=== PATIENT | female | born 1950 | race American Indian/Alaskan Native ===

== ENCOUNTER 2016-05-26 08:57 | Outpatient (CLI) | payer BC ==
--- NOTE | 2016-05-26 10:11 | Mammography Report ---
LEFT DIGITAL DIAGNOSTIC MAMMOGRAM : 05/26/16 08:57:00 CLINICAL: Six month follow-up calcifications. COMPARISON:11/25/15 FINDINGS: ML and CC magnification views demonstrate a slight increased density of calcifications which are probably benign.No suspicious forms. No associated mass or architectural distortion. IMPRESSION: Probably benign calcifications. BI-RADS CATEGORY: 3 -- Probably Benign RECOMMENDATION: An additional six month followup with magnification views. ACR BI-RADS MAMMOGRAPHIC CODES: 0 = Needs additional imaging evaluation; 1 = Negative; 2 = Benign; 3 = Probably benign; 4 = Suspicious; 5 = Malignant; 6 = Known biopsy-proven malignancy COMMENT: 1. Dense breast tissue, i.e., adenosis, fibrocystic changes, etc., may obscure an underlying neoplasm. 2. Approximately 10% of cancers are not detected with mammography. 3. A negative mammography report should not delay biopsy if a clinically suspicious mass is present. COMMENT: Patient follow-up letters are generated by our [employer] application.
== END 2016-05-26 08:58 | disposition home or self-care (01) ==
LOC: SPVWC 08:57
PROVIDERS: ATTEND Internal Medicine
DX: R92.1 Mammographic calcification found on diagnostic imaging of breast (principal)
CPT/HCPCS: G0206-LT

== ENCOUNTER 2016-11-29 08:19 | Outpatient (CLI) | payer BC ==
--- NOTE | 2016-11-29 08:49 | Mammography Report ---
Left mammogram: AP and lateral magnification views compared to comparable exam in May 2016. There are 2 adjacent groupings of microcalcifications which remain unchanged with low suspicion for malignancy. Impression: Stable calcifications. Recommendation: Reevaluate calcifications in 6 months with her annual screening mammogram. BI-RADS CATEGORY: 3 = Probably benign ACR BI-RADS MAMMOGRAPHIC CODES: 0 = Needs additional imaging evaluation; 1 = Negative; 2 = Benign; 3 = Probably benign; 4 = Suspicious; 5 = Malignant; 6 = Known biopsy-proven malignancy COMMENT: 1. Dense breast tissue, i.e., adenosis, fibrocystic changes, etc., may obscure an underlying neoplasm. 2. Approximately 10% of cancers are not detected with mammography. 3. A negative mammography report should not delay biopsy if a clinically suspicious mass is present.
== END 2016-11-29 08:20 | disposition home or self-care (01) ==
LOC: SPVWC 08:19
PROVIDERS: ATTEND Internal Medicine
DX: R92.0 Mammographic microcalcification found on diagnostic imaging of breast (principal)
CPT/HCPCS: G0206-LT

== ENCOUNTER 2017-05-23 14:41 | Outpatient (CLI) | payer BC ==
--- NOTE | 2017-05-24 15:39 | Mammography Report ---
BILATERAL DIGITAL DIAGNOSTIC MAMMOGRAM with CAD: 05/23/17 14:41:00 CLINICAL: Followup left calcifications and routine screening of the right breast. COMPARISON:Left diagnostic mammograms from 11/29/16, 05/26/16, 11/25/15 and bilateral screening mammogram from 11/03/15 FINDINGS: The breasts are mostly fatty with a few bilateral scattered fibroglandular densities. Stable calcifications in the left breast with no suspicious forms.No mass, architectural distortion or suspicious calcifications of either breast. IMPRESSION: No mammographic evidence of malignancy. BI-RADS CATEGORY: 2 - - Benign RECOMMENDATION: Routine mammographic screening in one year. ACR BI-RADS MAMMOGRAPHIC CODES: 0 = Needs additional imaging evaluation; 1 = Negative; 2 = Benign; 3 = Probably benign; 4 = Suspicious; 5 = Malignant; 6 = Known biopsy-proven malignancy COMMENT: 1. Dense breast tissue, i.e., adenosis, fibrocystic changes, etc., may obscure an underlying neoplasm. 2. Approximately 10% of cancers are not detected with mammography. 3. A negative mammography report should not delay biopsy if a clinically suspicious mass is present. COMMENT: Patient follow-up letters are generated by our [employer] application.
== END 2017-05-23 14:42 | disposition home or self-care (01) ==
LOC: SPVWC 14:41
PROVIDERS: ATTEND Nurse Practitioner
DX: R92.0 Mammographic microcalcification found on diagnostic imaging of breast (principal)
CPT/HCPCS: 77066

== ENCOUNTER 2018-05-24 08:51 | Outpatient (CLI) | payer BC ==
--- NOTE | 2018-05-24 10:13 | Mammography Report ---
BILATERAL DIGITAL SCREENING MAMMOGRAM with CAD : 05/24/18 08:51:00 CLINICAL: Routine screening. COMPARISON:05/23/17 FINDINGS: The breasts are heterogeneously dense, which may obscure small masses.Bilateral benign calcifications. No mass, architectural distortion or suspicious calcifications. IMPRESSION: No mammographic evidence of malignancy. BI-RADS CATEGORY: 2 -- Benign RECOMMENDATION: Routine mammographic screening in one year. COMMENT: Patient follow-up letters are generated by our [employer] application.
== END 2018-05-24 08:52 | disposition home or self-care (01) ==
LOC: SPVWC 08:51
PROVIDERS: ATTEND Internal Medicine
DX: Z12.31 Encounter for screening mammogram for malignant neoplasm of breast (principal)
CPT/HCPCS: 77067

== ENCOUNTER 2020-06-30 08:33 | Outpatient (CLI) | payer BC, MEDICARE ==
--- NOTE | 2020-06-30 09:49 | Mammography Report ---
DIGITAL SCREENING MAMMOGRAM WITH CAD, 06/30/2020 CLINICAL INFORMATION / INDICATION: Routine screening mammography. TECHNIQUE: Digital bilateral 2D mammography was obtained in the craniocaudal and mediolateral obliqu e projections. This examination was interpreted with the benefit of Computer-Aided Detection analysis . COMPARISON: 05/23/2017, 06/27/2019 FINDINGS: Breast Density: There are scattered areas of fibroglandular density. No dominant mass, suspicious calcifications, or architectural distortion in either breast. Multiple clusters of benign-appearing calcifications are again noted throughout the left breast, unch anged since 2020 mammogram. Overall, no interval change. IMPRESSION: No mammographic evidence of malignancy. Follow up recommendation: Routine yearly BI-RADS Category 2: Benign. A "normal" or negative report should not discourage follow up or biopsy of a clinically significant f inding. A written summary of these findings will be mailed to the patient. The patient will be entered into a mammography reporting system which will generate a reminder letter for the patient's next appointmen t at the appropriate interval. The [employer] recommends yearly mammograms starting at age 40 and continuing as l abbi as a woman is in good health. Breast MRI is recommended for women with an approximate 20-25% or greater lifetime risk of breast cancer, including women with a strong family history of breast or ova bety cancer or who have been treated for Hodgkin's disease. Signer Name: Mami Fraire MD Signed: 06/30/2020 9:44 AM Workstation Name: [employer]
== END 2020-06-30 08:34 | disposition home or self-care (01) ==
LOC: SPVWC 08:33
PROVIDERS: ATTEND Internal Medicine
DX: Z12.31 Encounter for screening mammogram for malignant neoplasm of breast (principal); N64.89 Other specified disorders of breast
CPT/HCPCS: 77067

== ENCOUNTER 2021-07-01 08:44 | Outpatient (CLI) | payer BC, MEDICARE | END 2021-07-01 08:45 | disposition home or self-care (01) | LOC: SPVWC 08:44 | PROVIDERS: ATTEND Internal Medicine | DX: Z12.31 Encounter for screening mammogram for malignant neoplasm of breast (principal) | CPT/HCPCS: 77067 ==